=== PATIENT | female | born 1960 | race Caucasian/White ===

== ENCOUNTER 2016-06-05 10:37 | Day surgery (SDC) | payer OTHER ==
[~2016-06-05] VITALS: Ht 160 cm; Wt 68.9 kg
[~2016-06-05 10:37] MED LIST: CLOT1L10 TOP; LORA10TA3 PO; NORT10CA2 PO; OMEP20CA16 PO; PSL6PK PO
[2016-06-05 11:16] VITALS: Ht 160 cm; Wt 68.9 kg
[2016-06-05 11:54] VITALS: BP 126/75; PULSE 62; RESP 14
[2016-06-05 12:25] VITALS: BP 120/67; PULSE 62; RESP 16
[2016-06-05] MEDS ORDERED: FENTAnyl 50 MCG/ML VIAL ONE (12:32)
[2016-06-05] MEDS ORDERED: MIDAZOLAM 1 MG/ML 2 ML INJ ONE ×2 (12:32)
[2016-06-05 13:00] VITALS: BP 124/74; PULSE 52; RESP 12
--- NOTE | 2016-06-05 13:59 | GILP ---
DATE OF PROCEDURE: 06/05/2016 NAME OF PROCEDURES: 1. Esophagogastroduodenoscopy and biopsy. 2. Colonoscopy. SURGEON: Eliza Gamboa MD PREOPERATIVE DIAGNOSES: 1. Abdominal pain. 2. Chronic heartburn. 3. Screening colonoscopy. POSTOPERATIVE DIAGNOSES: 1. Gastroesophageal reflux disease. 2. Bile reflux gastritis with erosions. 3. Gastric mucosal biopsies were taken for Helicobacter pylori test. 4. Multiple small gastric polyps. 5. Colonoscopy all the way to the cecum. 6. Diverticulosis of the colon. 7. Internal hemorrhoids. 8. No colon neoplasm was identified. INDICATION FOR THE PROCEDURE: Ms. Estela Armenta is a 55-year-old female patient who noticed a c hange in the bowel habit. She never had screening colonoscopy. The patient also had upper abdomina l pain and chronic heartburn, not responding to therapy. The patient was scheduled for endoscopy an d colonoscopy for further evaluation. The procedures and possible complications were well explained to the patient, she understood and con sented to the procedure. DESCRIPTION OF PROCEDURE: Under the influence of fentanyl and Versed, the gastroscope was carefully introduced into the esophagus and under direct vision, it was advanced to the stomach and through t he pylorus into the duodenal bulb and descending duodenum. FINDINGS: ESOPHAGUS: The patient had gastroesophageal reflux disease. STOMACH: She had bile reflux gastritis with erosions. Gastric mucosal biopsies were taken for H. p ylori test. Duodenum was normal. Patient was also noted to have small gastric polyps. The colonoscope was carefully introduced in the rectum and under direct vision, it was advanced all the way to the cecum. FINDINGS: The patient had diverticulosis of the colon. She also had internal hemorrhoids. No colo n neoplasm was identified. She tolerated the procedures very well and there was no complication from the procedures. At the en d of the procedures, she was awake with stable vital signs and she was discharged home to the care o f her family. IMPRESSION: Please see postoperative diagnoses. PLAN: 1. Continue omeprazole and fiber. 2. Carafate 1 g p.o. t.i.d. a.c. 3. Await H. pylori test report. 4. Next screening colonoscopy in 10 years. Dictated By: ELIZA AMARO/JYOTI Conf#: [id number] DID#: [id number] CC: ELIZA GAMBOA MD;*[facility]*
== END 2016-06-08 14:54 | disposition home or self-care (01) ==
LOC: GIL 10:37
PROVIDERS: ATTEND Internal Medicine Gastroenterology
DX: Z12.11 Encounter for screening for malignant neoplasm of colon (principal); K21.9 Gastro-esophageal reflux disease without esophagitis; K29.60 Other gastritis without bleeding; K57.90 Diverticulosis of intestine, part unspecified, without perforation or abscess without bleeding; K64.8 Other hemorrhoids
CPT/HCPCS: 43239; 45378; 87081; J2250; J3010; Z7610